=== PATIENT | female | born 1965 | race African-American/Black ===

== ENCOUNTER 2021-06-13 19:52 | Emergency (ER) | payer OTHER ==
[~2021-06-13] VITALS: Ht 158.8 cm; Wt 74.8 kg
[2021-06-13 22:56] VITALS: BP 150/77; TEMP 98.4
== END 2021-06-13 22:56 | disposition home or self-care (01) ==
LOC: ED 19:52
DX: M75.01 Adhesive capsulitis of right shoulder (principal)
CPT/HCPCS: 96372; 99283; J1885

== ENCOUNTER 2022-11-29 11:04 | Outpatient (CLI) | payer OTHER | END 2022-11-29 17:00 | disposition home or self-care (01) | LOC: MAMMO 11:04 | PROVIDERS: ATTEND Family Medicine | DX: M25.511 Pain in right shoulder (principal); M54.2 Cervicalgia; Z12.31 Encounter for screening mammogram for malignant neoplasm of breast ==

== ENCOUNTER 2022-12-21 13:17 | Outpatient (CLI) | payer OTHER | END 2022-12-21 17:00 | disposition home or self-care (01) | LOC: MAMMO 13:17 | PROVIDERS: ATTEND Family Medicine | DX: R92.8 Other abnormal and inconclusive findings on diagnostic imaging of breast (principal) ==

== ENCOUNTER 2022-12-27 13:37 | Outpatient (CLI) | payer OTHER | END 2022-12-27 17:00 | disposition home or self-care (01) | LOC: US 13:37 | PROVIDERS: ATTEND Family Medicine | DX: R92.8 Other abnormal and inconclusive findings on diagnostic imaging of breast (principal) ==